=== PATIENT | female | born 1985 | race American Indian/Alaskan Native ===

== ENCOUNTER 2017-01-30 12:24 | Emergency (ER) | payer SELFPAY ==
[2017-01-30 17:46] LABS: Bilirubin,Urine NEG (Negative); Blood,Urine NEG (Negative); Ketones,Urine NEG (Negative); Leukocyte Esterase,Urine MOD (Negative); Mucus,Urine FEW /HPF; Nitrite,Urine NEG (Negative); Protein,Urine <15 mg/dL mg/dL (Negative); Urobilinogen,Urine < 2.0 mg/dL (<2.0)
[2017-01-30] MEDS ORDERED: DIFLUCAN PO ONE (18:00)
[2017-01-30] MEDS ORDERED: FLAGYL PO ONE (18:05)
[2017-01-30 18:40] VITALS: BP 109/75
--- NOTE | 2017-02-01 17:55 | Emergency Department Report ---
Entered by AME ALLEN, acting as scribe for ELOISA GAGNON PA. ED Female HPI - General Chief complaint: Urogenital-Female Stated complaint: VAGINAL ITCH Time Seen by Provider: 01/30/17 16:40 Source: patient Mode of arrival: Ambulatory Limitations: No Limitations - History of Present Illness Initial comments: 31 year old female presents to ED with c/o vaginal itching outside the lip for 2 weeks. Patient reports she used hair removal cream and noticed itching and odor right after using the cream. Patient states she been using protection during intercourse with her partner. Patient states mild discharge but denies vaginal bleeding, abd pain, dysuria, frequency, urgency, fever, chills, headache , chest pain or SOB. LMP 01/13/2017. MD Complaint: other (Vaginal itching) -: week(s) (2) Severity: moderate Severity scale (0 -10): 4 Quality: cramping Consistency: constant Improves with: none Worsens with: none Are you Now?: No Last Menstrual Period: 01/13/17 EDC: 10/20/17 Associated Symptoms: denies other symptoms, vaginal discharge (mild). denies: vaginal bleeding, abdominal pain, nausea/vomiting, fever/chills, headaches, dysuria, hematuria, shortness of breath, weakness - Related Data Sexually active: Yes Previous Rx's Medication Instructions Recorded Last Taken Type Fluconazole [Diflucan TAB] 150 mg PO ONCE #1 tablet 01/30/17 Unknown Rx Sulfamethoxazole/Trimethoprim 1 each PO BID #10 tablet 01/30/17 Unknown Rx [Bactrim DS TAB] metroNIDAZOLE 0.75% [Vandazole 1 applicator VG QHS #1 tube 01/30/17 Unknown Rx 0.75% VAGINAL] Allergies Allergy/AdvReac Type Severity Reaction Status Date / Time No Known Allergies Allergy Unverified 01/30/17 13:06 ED Review of Systems Comment: All other systems reviewed and negative Constitutional: denies: chills, fever, weakness Respiratory: denies: cough, shortness of breath, wheezing Cardiovascular: denies: chest pain, palpitations Gastrointestinal: denies: abdominal pain, nausea, vomiting, diarrhea Genitourinary: discharge (mild). denies: urgency, dysuria, frequency Musculoskeletal: denies: back pain, joint swelling, arthralgia Skin: denies: rash, lesions Neurological: denies: headache, weakness, numbness, paresthesias ED Past Medical Hx - Past Medical History Previous Medical History?: No - Surgical History Past Surgical History?: No - Social History Smoking Status: Never Smoker Substance Use Type: None - Medications Home Medications: Home Medications Medication Instructions Recorded Confirmed Last Taken Type Fluconazole [Diflucan TAB] 150 mg PO ONCE #1 tablet 01/30/17 Unknown Rx Sulfamethoxazole/Trimethoprim 1 each PO BID #10 tablet 01/30/17 Unknown Rx [Bactrim DS TAB] metroNIDAZOLE 0.75% [Vandazole 1 applicator VG QHS #1 tube 01/30/17 Unknown Rx 0.75% VAGINAL] ED Physical Exam - General Limitations: No Limitations - Other Other exam information: GENERAL: Patient is alert and oriented x 3. No apparent distress, normal gait, atraumatic. HEAD: Head is normocephalic and atraumatic. NECK: Supple. Non edematous, no carotid bruits. No lymphadenopathy or thyromegaly. LUNGS: Symmetrical with respiration. No wheezing, rales or crackles, CTAB. HEART: Regular rate and rhythm with normal S1/S2 present. No murmurs, rubs, or gallops. ABDOMEN: Soft, nondistended. Nontender to palpation on all quadrants. EXTREMITIES/MUSCULOSKELETAL: ROM intact, 2+ pulses in UE/LE, no pitting edema SKIN: Warm and dry. No lesions, ulceration or induration present NEUROLOGIC: No focal deficit. GENITOURINARY: External genitalia without erythema, but mild discharge. No cervical discharge. Cervix is of normal color without lesion. Cervical os is closed. No bleeding noted. Uterus is noted to be of normal size and nontender. No cervical motion tenderness. No masses are palpated. The adnexa are without masses or tenderness. ED Course Vital Signs 01/30/17 01/30/17 13:06 18:39 Temperature 98.1 F Pulse Rate 67 58 L Respiratory 16 20 Rate Blood Pressure 112/72 Blood Pressure 109/75 [Left] O2 Sat by Pulse 99 100 Oximetry ED Medical Decision Making - Medical Decision Making 31-year-old female presents with vulvovaginitis ED course: urinalysis and gonorrhea and Chlamydia cultures obtained. Urinalysis positive for leukorrhea, moderate leukocytes Wet prep cultures sent, positive for BV Patient received Diflucan Flagyl 2 g. Discussed with patient that STD could be possible and the results will not be back for another 3 days. The Discussed wet prep results and urine results with the patient. Discussed the follow-up with the health department for further STD testing. Patient's alert and oriented times 3. Vital signs are normal patient is in no acute discharge. Patient will be discharged home with instructions. ED Disposition Clinical Impression: Vulvovaginitis Disposition: DC- TO HOME OR SELFCARE Is pt being admited?: No Does the pt Need Aspirin: No Condition: Stable Instructions: Bacterial Vaginosis (ED), Sexually Transmitted Diseases (ED), Safe Sex (ED), Vulvovaginal Candidiasis (ED) Additional Instructions: Follow-up with primary care as discussed. Take your medication is discussed Prescriptions: metroNIDAZOLE 0.75% [Vandazole 0.75% VAGINAL] 1 applicator VG QHS #1 tube Fluconazole [Diflucan TAB] 150 mg PO ONCE #1 tablet Sulfamethoxazole/Trimethoprim [Bactrim DS TAB] 1 each PO BID #10 tablet Referrals: PRIMARY MD RICARDO [Primary Care Provider] - 3-5 Days DENISE SCHAEFER MD [Referring] - 3-5 Days Forms: Work/School Release Form(ED) Time of Disposition: 18:08 This documentation as recorded by the TIFFANY coon PEARL,accurately reflects the service I personally performed and the decisions made by KALIN null OYINLOLA A, PA.
== END 2017-01-30 18:45 | disposition home or self-care (01) ==
LOC: ED 12:24
DX: N76.0 Acute vaginitis (principal)
CPT/HCPCS: 81001; 81025; 87210; 87591; 99284